=== PATIENT | female | born 1965 | race African-American/Black ===

== ENCOUNTER 2018-08-04 02:24 | Emergency (ER) | payer MEDICARE, OTHER ==
[~2018-08-04] VITALS: Ht 170.2 cm; Wt 143.2 kg
[2018-08-04 02:55] LABS: BASOPHILS 0.3 % (0-2); EOSINOPHILS 3.3 % (0-7); HEMATOCRIT 32.3 % (36.0-48.0); HEMOGLOBIN 10.5 g/dL (12-16); IMMATURE GRANULOCYTES 0.4 % (0-5); LYMPHOCYTES 36.6 % (15-50); MCH 26.1 pg (26.0-34.0); MCHC 32.5 g/dL (31.0-37.0); MCV 80.1 fL (80.0-100.0); MEAN PLATELET VOLUME 12.4 fL (7.4-10.4); MONOCYTES 10.2 % (2-11); NEUTROPHILS 49.2 % (40-80); PLATELET COUNT 149 10x3/uL (130-400); RBC 4.03 10x6/uL (4.00-5.40); RDW 13.8 % (11.5-14.5); WBC 7.4 10x3/uL (4.8-10.8)
[2018-08-04 02:56] VITALS: Ht 170.2 cm; Wt 143.2 kg
[2018-08-04] MEDS ORDERED: LISINOPRIL2.5 MG PO (02:57)
[2018-08-04] MEDS ORDERED: AMBIEN10 MG PO (02:58)
[2018-08-04] MEDS ORDERED: HUMULIN R100 U/ML SC (02:58)
[2018-08-04] MEDS ORDERED: CRESTOR20 MG PO (02:59)
[2018-08-04] MEDS ORDERED: GLIMEPIRIDE4 MG PO (02:59)
[2018-08-04] MEDS ORDERED: CARDIZEM30 MG (02:59)
[2018-08-04] MEDS ORDERED: COZAAR50 MG PO (02:59)
[2018-08-04] MEDS ORDERED: LASIX40 MG PO (03:00)
[2018-08-04 03:10] LABS: ALKALINE PHOSPHATASE 82 U/L (46-116); ALT (SGPT) 29 U/L (10-68); BILIRUBIN - TOTAL 0.16 mg/dL (0.2-1.3); CALC OSMOLALITY 298 mosm/kg (275-300); CALCIUM 8.7 mg/dL (8.5-10.1); CARBON DIOXIDE 22.2 mmol/L (21.0-32.0); CHLORIDE - SERUM 102 mmol/L (98-107); CREATININE - SERUM 3.2 mg/dL (0.6-1.3); GLUCOSE 334 mg/dL (74-106); POTASSIUM - SERUM 4.7 mmol/L (3.5-5.1); PROTEIN - SERUM 7.9 g/dL (6.4-8.2); SODIUM 135 mmol/L (136-145); UREA NITROGEN 56 mg/dL (7-18); eGFR NON AFRICAN AMERICAN 16 mL/min (90-120)
[2018-08-04 03:30] LABS: CREATINE KINASE 656 UL (21-215); THYROID STIMULATING HORMONE 3.64 uIU/mL (0.36-3.74); TROPONIN-I < 0.017 ng/mL (0.000-0.060)
[2018-08-04 03:33] LABS: CKMB 2.7 U/L (0.0-3.6)
[2018-08-04] MEDS ORDERED: ISOSORBIDE MONO30 M1 PO (04:02)
[2018-08-04 04:53] VITALS: BP 154/75
== END 2018-08-04 04:25 | disposition home or self-care (01) ==
LOC: D.ER 02:24
PROVIDERS: Emergency Medicine
DX: N28.9 Disorder of kidney and ureter, unspecified (principal); R07.89 Other chest pain; E11.65 Type 2 diabetes mellitus with hyperglycemia; Z79.4 Long term (current) use of insulin